=== PATIENT | male | born 1950 | race American Indian/Alaskan Native ===

== ENCOUNTER 2016-09-21 02:34 | Emergency (ER) | payer MEDICARE ==
[2016-09-21 03:14] VITALS: BP 101/75
[2016-09-21] MEDS ORDERED: NACL 0.9% 1000 ML 1,000 ML IV ONE (03:14)
[2016-09-21] MEDS ORDERED: TYLENOL PO ONE (03:17)
[2016-09-21 04:02] LABS: Hematocrit 38.2 % (35.5-45.6); Hemoglobin 12.2 gm/dl (11.8-15.2); Mean Corpuscular HGB Conc 32 % (32-34); Mean Corpuscular Hemoglobin 27 pg (28-32); Mean Corpuscular Volume 84 fl (84-94); Platelet Count 318 K/mm3 (140-440); Red Blood Count 4.56 M/mm3 (3.65-5.03); Red Cell Distribution Width 16.3 % (13.2-15.2); White Blood Count 16.3 K/mm3 (4.5-11.0)
[2016-09-21 04:13] LABS: INR 1.21 (0.87-1.13)
[2016-09-21 04:14] LABS: Partial Thromboplastin Time 32.2 Sec. (24.2-36.6)
[2016-09-21 04:15] LABS: Albumin/Globulin Ratio 1.1 %; BUN/Creatinine Ratio 12.28; Bilirubin,Total 0.6 mg/dL (0.1-1.2); Calcium 8.6 mg/dL (8.4-10.2); Chloride 99.1 mmol/L (98-107); Potassium 4.9 mmol/L (3.6-5.0); Total Protein 7.6 g/dL (6.3-8.2)
[2016-09-21 06:57] LABS: Basophils % (Manual) 0 % (0.0-1.8); Blastocytes % (Manual) 0 %; Eosinophils % (Manual) 0 % (0.0-4.3)
[2016-09-21 06:58] LABS: Dohle Bodies Few; Stomatocytes Rare
[2016-09-21 06:59] LABS: Anisocytosis 1+
[2016-09-21 07:00] LABS: Diff Status Complete; Platelet Clumps Rare
[2016-09-21 07:01] LABS: Platelet Estimate Consistent w Auto
[2016-09-21] MEDS ORDERED: PROTONIX IV ONE (07:17)
--- NOTE | 2016-09-21 07:41 | Emergency Department Report ---
HPI - General Chief Complaint: GI Bleed Time Seen by Provider: 09/21/16 07:06 - HPI HPI: This is a 66-year-old Afro-[place]onegasque male presents to the emergency department with a complaint of a one-day history of hematuria, melanotic, and some nausea with vomiting with hematemesis. Patient also says that he has been having trouble urinating since he got up this evening at about 1 AM. He has not taken anything for symptoms prior to presentation. He denies any abdominal pain but does complain of some shortness of breath. His primary care doctor is Dr. Teague. He has a past nuchal history of arthritis, stroke, diabetes, GERD, coronary artery disease with SC, hypertension. He says he has some history of renal disease but his last kidney check was normal. No recent travel or sick contacts at home. ED Past Medical Hx - Past Medical History Previous Medical History?: Yes Hx Hypertension: Yes Hx CVA: Yes Hx Heart Attack/AMI: Yes Hx Diabetes: Yes Hx GERD: Yes Hx Renal Disease: Yes Hx Arthritis: Yes Hx Kidney Stones: Yes - Surgical History Past Surgical History?: No - Social History Smoking Status: Never Smoker Substance Use Type: None ED Review of Systems ROS: Stated complaint: BLOOD IN URINE Other details as noted in HPI Comment: All other systems reviewed and negative Constitutional: denies: chills, fever Eyes: denies: eye pain, eye discharge, vision change ENT: denies: ear pain, throat pain Respiratory: shortness of breath. denies: cough, wheezing Cardiovascular: denies: chest pain, palpitations Gastrointestinal: nausea, vomiting, diarrhea, hematemesis, melena Genitourinary: hematuria. denies: discharge Musculoskeletal: denies: joint swelling, arthralgia Skin: denies: rash, lesions Neurological: denies: headache, weakness, paresthesias Physical Exam - Physical Exam Vital Signs: Vital Signs 09/21/16 03:06 Temperature 101.3 F H Pulse Rate 105 H Respiratory 20 Rate Blood Pressure 101/75 O2 Sat by Pulse 99 Oximetry Physical Exam: GENERAL: The patient is well-developed well-nourished. HEENT: Normocephalic. Atraumatic. Extraocular motions are intact. Patient has moist mucous membranes. NECK: Supple. Trachea is midline. CHEST/LUNGS: Clear to auscultation. There is no respiratory distress noted. HEART/CARDIOVASCULAR: Regular. There is no tachycardia. There is no gallop rub or murmur. ABDOMEN: Abdomen is soft, nontender. Patient has normal bowel sounds. There is no abdominal distention. SKIN: There is no rash. There is no edema. There is no diaphoresis. NEURO: The patient is awake, alert, and oriented. The patient is cooperative. The patient has no focal neurologic deficits. The patient has normal speech. No gait abnormalities. MUSCULOSKELETAL: There is no tenderness or deformity. There is no limitation range of motion. There is no evidence of acute injury. ED Course Vital Signs 09/21/16 03:06 Temperature 101.3 F H Pulse Rate 105 H Respiratory 20 Rate Blood Pressure 101/75 O2 Sat by Pulse 99 Oximetry ED Medical Decision Making - Lab Data Result diagrams: 09/21/16 03:47 09/21/16 03:47 - EKG Data -: EKG Interpreted by Me EKG shows normal: sinus rhythm, axis (LAD), intervals, QRS complexes ( suggestive of right ventricular conduction delay), ST-T waves Rate: normal - EKG Data When compared to previous EKG there are: previous EKG unavailable Interpretation: other (left axis deviation, suggestive of right ventricular conduction delay) - Medical Decision Making This is a 66-year-old male who presents to the emergency department with hematuria, hematemesis, melanoma, some shortness of breath and resents with a fever despite not complaining of fever like symptoms. Patient's labs show renal failure which is acute kidney injury or acute on chronic kidney injury. The plan was to most likely admit the patient to the hospital. Patient needed a rectal examination to look for melana. He was to receive IV Protonix, a renal ultrasound to look for urinary obstruction, urinalysis, chest x-ray to evaluate his shortness of breath, among other treatments. However the patient refused any further workup and has left AGAINST MEDICAL ADVICE. I spent time discussing with the patient the risks of leaving including continued renal failure leading to dialysis, worsening shortness of breath that could lead to a coma or , worsening fever, debility. Despite that fact the patient still continues to say that he will just follow-up with his primary care doctor. His primary care doctor is Dr. Teague and I told the patient that I could contact him to let him know of his symptoms and results as I do not believe his primary care doctor will want him followed up in the office regarding all of these abnormalities. However the patient still refused any further workup and left AGAINST MEDICAL ADVICE. - Differential Diagnosis SC, PE, renal failure, CHF, pneumonia Critical Care Time: No Critical care attestation.: If time is entered above; I have spent that time in minutes in the direct care of this critically ill patient, excluding procedure time. ED Disposition Clinical Impression: Acute kidney injury, Renal failure, Melena Fever Qualifiers: Fever type: other Qualified Code(s): R50.81 - Fever presenting with conditions classified elsewhere Hematemesis Qualifiers: Nausea presence: unspecified Qualified Code(s): K92.0 - Hematemesis Disposition: LEFT AGAINST MEDICAL ADVICE Is pt being admited?: No Condition: Fair Referrals: CHIARA HUTCHINS MD [Primary Care Provider] - 3-5 Days Forms: Accompanied Note Time of Disposition: 08:50
== END 2016-09-21 08:50 | disposition left against medical advice (07) ==
LOC: ED 02:34
DX: N17.9 Acute kidney failure, unspecified (principal); K92.1 Melena; R50.81 Fever presenting with conditions classified elsewhere; I10 Essential (primary) hypertension; I63.9 Cerebral infarction, unspecified; E11.9 Type 2 diabetes mellitus without complications; K21.9 Gastro-esophageal reflux disease without esophagitis; M19.90 Unspecified osteoarthritis, unspecified site; I25.2 Old myocardial infarction
CPT/HCPCS: 36415; 80053; 83690; 85007; 85025; 85610; 85730; 86850; 86900; 86901; 93005; 93010; 99285; C9113; J7030